=== PATIENT | male | born 1970 | race Two or more races ===

== ENCOUNTER 2022-10-30 08:29 | Emergency (ER) | payer OTHER ==
[~2022-10-30] VITALS: Ht 177.8 cm; Wt 91.6 kg
== END 2022-10-30 09:33 | disposition home or self-care (01) ==
LOC: ER 08:29
DX: S61.214A Laceration without foreign body of right ring finger without damage to nail, initial encounter (principal); Y93.B2 Activity, push-ups, pull-ups, sit-ups; Y93.89 Activity, other specified; Y92.018 Other place in single-family (private) house as the place of occurrence of the external cause; Y99.9 Unspecified external cause status